=== PATIENT | female | born 1945 | race Caucasian/White ===

== ENCOUNTER → 2017-01-24 15:29 | Outpatient (CLI) | payer MEDICARE ==
[2013-08-09 13:46] VITALS: BMI 17.3
[~2017-01-24 15:29] MED LIST: ATIVAN1 MG PO; FLAGYL500 MG PO; PRILOSEC20 MG PO; TOPROL XL50 MG PO
[2017-01-24 15:48] LABS: CALC OSMOLALITY 262 mosm/kg (275-300); CALCIUM 8.9 mg/dL (8.5-10.1); CARBON DIOXIDE 30.4 mmol/L (21.0-32.0); CHLORIDE - SERUM 96 mmol/L (98-107); CREATININE - SERUM 0.8 mg/dL (0.6-1.3); GLUCOSE 94 mg/dL (74-106); SODIUM 131 mmol/L (136-145); UREA NITROGEN 13 mg/dL (7-18); eGFR NON AFRICAN AMERICAN 75 mL/min (90-120)
== END | disposition home or self-care (01) ==
LOC: D.LABREF 15:29
PROVIDERS: Family Medicine
DX: E87.5 Hyperkalemia (principal)

== ENCOUNTER → 2018-11-11 08:11 | Outpatient (CLI) | payer OTHER ==
[2013-08-09 13:46] VITALS: BMI 17.3
== END | disposition home or self-care (01) ==
LOC: D.US 08:11
DX: R33.9 Retention of urine, unspecified (principal)

== ENCOUNTER → 2018-12-28 08:58 | Outpatient (CLI) | payer OTHER ==
[2013-08-09 13:46] VITALS: BMI 17.3
== END | disposition home or self-care (01) ==
LOC: D.CT 08:58
PROVIDERS: ATTEND Family Medicine
DX: J98.4 Other disorders of lung (principal)

== ENCOUNTER → 2020-02-03 08:31 | Outpatient (CLI) | payer OTHER ==
[2013-08-09 13:46] VITALS: BMI 17.3
== END | disposition home or self-care (01) ==
LOC: D.ECHO 08:31
PROVIDERS: ATTEND Family Medicine
DX: R01.1 Cardiac murmur, unspecified (principal)

== ENCOUNTER 2020-02-22 21:40 | Inpatient (IN) | payer OTHER ==
[~2020-02-22] VITALS: Ht 165.1 cm; Wt 50.1 kg
[2020-02-22] MEDS ORDERED: CIPRO500 MG PO (21:49)
[2020-02-22] MEDS ORDERED: GABAPENTIN300 MG PO (21:49)
[2020-02-22] MEDS ORDERED: FLAGYL500 MG PO (21:49)
[2020-02-22] MEDS ORDERED: COZAAR50 MG PO (21:50)
[2020-02-22] MEDS ORDERED: BUPROPION HCL150 M1 PO (21:51)
[2020-02-22] MEDS ORDERED: LEXAPRO20 MG PO (21:51)
[2020-02-22] MEDS ORDERED: RAMELTEON (21:53)
--- NOTE | 2020-02-22 22:20 | NUR ---
CAROLYN MANDUJANO AT BEDSIDE
--- NOTE | 2020-02-22 22:26 | NUR ---
PATIENT TO RADIOLOGY VIA
[2020-02-22 22:30] LABS: BASOPHILS 0.2 % (0-2); EOSINOPHILS 0.8 % (0-7); HEMATOCRIT 40.7 % (36.0-48.0); HEMOGLOBIN 13.6 g/dL (12-16); IMMATURE GRANULOCYTES 0.4 % (0-5); LYMPHOCYTES 26.7 % (15-50); MCH 30.2 pg (26.0-34.0); MCHC 33.4 g/dL (31.0-37.0); MCV 90.4 fL (80.0-100.0); MEAN PLATELET VOLUME 9.3 fL (7.4-10.4); MONOCYTES 6.5 % (2-11); NEUTROPHILS 65.4 % (40-80); RDW 15.1 % (11.5-14.5); WBC 10.8 10x3/uL (4.8-10.8)
[2020-02-22 22:36] LABS: PLATELET COUNT 331 10x3/uL (130-400)
[2020-02-22 22:38] LABS: BILIRUBIN NEGATIVE (NEGATIVE); GLUCOSE NEGATIVE (NEGATIVE); KETONE NEGATIVE (NEGATIVE); NITRITE NEGATIVE (NEGATIVE); SPECIFIC GRAVITY 1.015 (1.005-1.020); UROBILINOGEN NORMAL (NORMAL)
[2020-02-22 22:39] LABS: BACTERIA MODERATE /hpf (NEGATIVE); RED CELLS - URINE 0-5 /hpf (0-5); YEAST <1+ /hpf (NONE SEEN)
[2020-02-22 23:31] LABS: CALC OSMOLALITY 286 mosm/kg (275-300); CARBON DIOXIDE 23.6 mmol/L (21.0-32.0); CHLORIDE - SERUM 104 mmol/L (98-107); CREATININE - SERUM 1.7 mg/dL (0.6-1.3); GLUCOSE 127 mg/dL (74-106); POTASSIUM - SERUM 3.8 mmol/L (3.5-5.1); SODIUM 137 mmol/L (136-145); UREA NITROGEN 42 mg/dL (7-18); eGFR NON AFRICAN AMERICAN 31 mL/min (90-120)
[2020-02-22 23:45] LABS: ALBUMIN 3.1 g/dL (3.4-5.0); ALKALINE PHOSPHATASE 60 U/L (30-120); ALT (SGPT) 16 U/L (10-68); BILIRUBIN - TOTAL 0.22 mg/dL (0.2-1.3); CREATINE KINASE 79 UL (21-215); LIPASE 62 U/L (73-393); PRO BNP 237 pg/mL (0-125); TROPONIN-I < 0.017 ng/mL (0.000-0.060)
[2020-02-23 04:30] VITALS: BP 130/79; BMI 19.3
[2020-02-23 06:19] LABS: APTT 23.7 SECONDS (22.8-39.4); INR 1.09 (0.85-1.17); PROTIME 14.1 SECONDS (11.6-15.0)
--- NOTE | 2020-02-23 07:30 | NUR ---
REPORT RECEIVED. PT ALERT AND ORIENTED. PT'S ABD IS TENDER. DENIES NAUSEA. PT HAS IV TO LEFT FOREARM WITH NS AT 125ML/HR. PT NPO. NO NEEDS AT THIS TIME.
[2020-02-23 08:45] VITALS: BP 128/73
[2020-02-23 09:26] LABS: BASOPHILS 0.1 % (0-2); EOSINOPHILS 1.7 % (0-7); HEMATOCRIT 37.5 % (36.0-48.0); HEMOGLOBIN 12.1 g/dL (12-16); IMMATURE GRANULOCYTES 0.4 % (0-5); LYMPHOCYTES 34.2 % (15-50); MCH 29.4 pg (26.0-34.0); MCHC 32.3 g/dL (31.0-37.0); MEAN PLATELET VOLUME 8.4 fL (7.4-10.4); MONOCYTES 7.6 % (2-11); RBC 4.12 10x6/uL (4.00-5.40); RDW 15.2 % (11.5-14.5)
[2020-02-23 09:27] LABS: PLATELET COUNT 244 10x3/uL (130-400); WBC 7.3 10x3/uL (4.8-10.8)
--- NOTE | 2020-02-23 09:50 | NUR ---
MORNING MEDS GIVEN. ROCEPHIN INFUSING.
[2020-02-23 10:14] VITALS: BMI 19.3
[2020-02-23 13:28] VITALS: BP 127/69
[2020-02-23 15:10] VITALS: Ht 165.1 cm; Wt 50.1 kg
--- NOTE | 2020-02-23 15:30 | NUR ---
MILK OR MAG GIVEN TO HELP PT TO HAVE BM. WILL MONITOR.
[2020-02-23 17:14] VITALS: BP 132/71
--- NOTE | 2020-02-23 20:30 | NUR ---
SUPINE IN BED, A&O X 4, AMBULATES INDEPENDENTLY. HARD OF HEARING. REPORTS MODERATE ANXIETY, THAT IS ONLY INCREASING. DR BAÑUELOS GAVE PERMISSION FOR MEDS TO BE TAKEN WITH SIPS OF WATER. HOME MED RESTARTED BY NAZIA TIRADO. NO FURTHER NEEDS AT THIS TIME, CTM.
[2020-02-23 21:19] LABS: ANION GAP 11.9 mmol/L (8-16); CALCIUM 7.5 mg/dL (8.5-10.1); POTASSIUM - SERUM 3.9 mmol/L (3.5-5.1)
[2020-02-23 21:21] LABS: CREATININE - SERUM 0.9 mg/dL (0.6-1.3)
[2020-02-23 21:33] VITALS: BP 139/68
[2020-02-24 01:11] VITALS: BP 108/49
--- NOTE | 2020-02-24 02:12 | NUR ---
I have reviewed this patient and I concur with the Shift Assessment completed by the Licensed Practical Nurse today this shift.
[2020-02-24 06:49] VITALS: BP 126/72
[2020-02-24 07:00] LABS: BASOPHILS 0.2 % (0-2); HEMATOCRIT 34.7 % (36.0-48.0); HEMOGLOBIN 11.1 g/dL (12-16); IMMATURE GRANULOCYTES 0.2 % (0-5); LYMPHOCYTES 32.9 % (15-50); MCH 29.4 pg (26.0-34.0); MCV 91.8 fL (80.0-100.0); MEAN PLATELET VOLUME 8.3 fL (7.4-10.4); MONOCYTES 5.5 % (2-11); NEUTROPHILS 60.2 % (40-80); PLATELET COUNT 201 10x3/uL (130-400); RBC 3.78 10x6/uL (4.00-5.40); RDW 15.2 % (11.5-14.5)
[2020-02-24 07:07] LABS: WBC 4.9 10x3/uL (4.8-10.8)
[2020-02-24 07:12] LABS: ALBUMIN 2.6 g/dL (3.4-5.0); ANION GAP 9.4 mmol/L (8-16); BILIRUBIN - TOTAL 0.31 mg/dL (0.2-1.3); CALCIUM 7.8 mg/dL (8.5-10.1); CARBON DIOXIDE 24.6 mmol/L (21.0-32.0); CREATININE - SERUM 0.8 mg/dL (0.6-1.3); MAGNESIUM - SERUM 1.9 mg/dL (1.8-2.4); PROTEIN - SERUM 5.2 g/dL (6.4-8.2)
--- NOTE | 2020-02-24 08:15 | NUR ---
ASSESSMENT PER FLOW SHEET. PATIENT IS WITHOUT DISTRESS.PAIN MEDS ORDERD,SEE MAR. MONITOR FOR NEEDS
[2020-02-24 09:07] VITALS: BP 103/60
[2020-02-24 13:45] VITALS: BP 110/50
--- NOTE | 2020-02-24 16:44 | NUR ---
IN AND OUT CATH,NATIONAL SALES ASSOCIATE. URINE TO LAB ORDERED
[2020-02-24 17:56] VITALS: BP 123/56
[2020-02-24 20:00] VITALS: BP 128/59
[2020-02-25] VITALS: BP 94/52
[2020-02-25 04:00] VITALS: BP 138/84
[2020-02-25 06:40] LABS: BASOPHILS 0.2 % (0-2); EOSINOPHILS 0.5 % (0-7); HEMATOCRIT 35.8 % (36.0-48.0); HEMOGLOBIN 11.2 g/dL (12-16); IMMATURE GRANULOCYTES 0.2 % (0-5); MCHC 31.3 g/dL (31.0-37.0); MCV 92.7 fL (80.0-100.0); MEAN PLATELET VOLUME 8.1 fL (7.4-10.4); MONOCYTES 6.6 % (2-11); NEUTROPHILS 76.5 % (40-80); PLATELET COUNT 226 10x3/uL (130-400); RBC 3.86 10x6/uL (4.00-5.40); RDW 15.1 % (11.5-14.5)
[2020-02-25 06:57] LABS: WBC 6.2 10x3/uL (4.8-10.8)
[2020-02-25 06:58] LABS: ALBUMIN 2.8 g/dL (3.4-5.0); ANION GAP 16.6 mmol/L (8-16); BILIRUBIN - TOTAL 0.28 mg/dL (0.2-1.3); CALCIUM 8.5 mg/dL (8.5-10.1); CARBON DIOXIDE 20.5 mmol/L (21.0-32.0); CREATININE - SERUM 0.9 mg/dL (0.6-1.3); MAGNESIUM - SERUM 1.9 mg/dL (1.8-2.4); POTASSIUM - SERUM 4.1 mmol/L (3.5-5.1); PROTEIN - SERUM 5.5 g/dL (6.4-8.2)
--- NOTE | 2020-02-25 08:13 | NUR ---
RECEIVED CALL FROM PHARMACY PT HAD A CRITICAL GLUCOSE OF 38. RECHECKED FINGER STICK, READING OF 39. CALLED CANDIDA MERRITT. GOT ORDERS FOR A DOSE OF D50. ADMINISTERED. PT IS RESTING IN BED, ALERT AND ORIENTED. WILL REASSES BLOOD SUGAR. DENIES ANY NEEDS AT THIS TIME. BED IN LOWEST POSITION, BED RAILS X2, CALL LIGHT WITHIN REACH. WILL CONTINUE TO MONITOR.
--- NOTE | 2020-02-25 09:01 | NUR ---
REASSESSED BLOOD SUGAR, 147. ACCEPTABLE READING. ADMINISTERED IV PROTONIX AND HELD ALL PO MEDICATIONS DUE TO NPO ORDER. PT IS RESTING COMFORTABLY IN BED. ALERT AND ORIENTED X4. DENIES ANY NEEDS. BED IN LOWEST POSITION, BED RAILS X2, CALL LIGHT WITHIN REACH. WILL CONTINUE TO MONITOR.
--- NOTE | 2020-02-25 09:02 | NUR ---
ASSESSMENT PERFOMRED AT THIS TIME.
--- NOTE | 2020-02-25 11:12 | NUR ---
ADMINSITERED MORPHINE AND ZOFRAN FOR PAIN AND NAUSEA. HUNG IV ANTIBIOTICS. TOLERATED WELL. RESTING IN BED, COMPLAINTS OF BEING IN PAIN. FAMILY AT BEDSIDE. DENIES ANY NEEDS. WILL CONTINUE TO MONITOR.
--- NOTE | 2020-02-25 12:17 | NUR ---
PT HAVING BOWEL MOVEMENT
--- NOTE | 2020-02-25 13:31 | NUR ---
Nutrition follow-up: Pt continues NPO 2/2 nuasea, increased pain Labs reviewed Wt: 116# +BM today Recommend starting ProcalAmine PPN @ 75 cc/hr until diet advanced RDN following.
[2020-02-25 15:13] VITALS: BP 143/66
--- NOTE | 2020-02-25 15:13 | NUR ---
PATIENT IS WITHOUT DISTRESS.CALL LIGHT IN REACH
[2020-02-25 15:27] VITALS: BP 130/61
--- NOTE | 2020-02-25 15:42 | NUR ---
ADMINISTERED ATIVAN PER PT REQUEST. CANDIDA HOWELL STATED THAT PT COULD HAVE ICE CHIPS AND MEDICATION AFTER THE BOWEL SERIES WAS COMPLETED. RESTING COMFORTABLY IN BED. DENIES ANY FURTHER NEEDS. WILL CONTINUE TO MONITOR.
--- NOTE | 2020-02-25 17:00 | NUR ---
PT RESTING COMFORTABLY IN BED. WISHES TO GO HOME TOMORROW. DENIES ANY NEEDS. BED IN LOWEST POSITION, BED RAILS X2, CALL LIGHT WITHIN REACH. WILL CONTINUE TO MONITOR.
[2020-02-25 18:43] VITALS: BP 123/57
[2020-02-25 20:00] VITALS: BP 134/54
[2020-02-26] VITALS: BP 114/67
--- NOTE | 2020-02-26 03:45 | NUR ---
I have reviewed this patient and I concur with the Shift Assessment completed by the Licensed Practical Nurse today this shift.
[2020-02-26 04:00] VITALS: BP 137/71
[2020-02-26 05:33] LABS: BASOPHILS 0.3 % (0-2); EOSINOPHILS 1.8 % (0-7); HEMATOCRIT 32.6 % (36.0-48.0); HEMOGLOBIN 10.5 g/dL (12-16); LYMPHOCYTES 35.1 % (15-50); MCH 29.4 pg (26.0-34.0); MCHC 32.2 g/dL (31.0-37.0); MCV 91.3 fL (80.0-100.0); MEAN PLATELET VOLUME 8.1 fL (7.4-10.4); MONOCYTES 9.2 % (2-11); NEUTROPHILS 53.6 % (40-80); RBC 3.57 10x6/uL (4.00-5.40); RDW 14.7 % (11.5-14.5)
[2020-02-26 05:39] LABS: PLATELET COUNT 173 10x3/uL (130-400); WBC 3.8 10x3/uL (4.8-10.8)
[2020-02-26 06:37] LABS: ALBUMIN 2.6 g/dL (3.4-5.0); ANION GAP 9.7 mmol/L (8-16); BILIRUBIN - TOTAL 0.18 mg/dL (0.2-1.3); CARBON DIOXIDE 24.7 mmol/L (21.0-32.0); CREATININE - SERUM 0.9 mg/dL (0.6-1.3); MAGNESIUM - SERUM 1.6 mg/dL (1.8-2.4); POTASSIUM - SERUM 3.4 mmol/L (3.5-5.1); PROTEIN - SERUM 4.8 g/dL (6.4-8.2)
[2020-02-26 08:41] VITALS: BP 148/67
--- NOTE | 2020-02-26 09:34 | NUR ---
PT LYING IN BED INQUIRED ON WHEN DOCTORS WOULD MAKE ROUNDS BECAUSE SHE IS READY TO GO, PT HAS IV SL IN LEFT FA AND IV IN RT FA WITH FLUIDS RUNNING AT 125. NO S/SX OF DISTRESS, ADMINISTERED SCHEDULED MEDS, NO OTHER NEEDS VOICED, CONTINUE WITH PLAN OF CARE
--- NOTE | 2020-02-26 11:42 | NUR ---
I have reviewed this patient and I concur with the Shift Assessment completed by the Licensed Practical Nurse today this shift.
[2020-02-26 12:16] VITALS: BP 167/67
--- NOTE | 2020-02-26 12:57 | MORECARE ---
CASE MANAGEMENT DISCHARGE SUMMARY PATIENT: HASMUKH DEL ANGEL UNIT: [id number] ADM DATE: 02/22/20 AGE: 74 : 45 SEX: F ROOM/BED: D.2218 AUTHOR: RAUL ANDERSON PHYSICIAN: REFERRING PHYSICIAN: OFELIA OSPINA MD DATE OF SERVICE: 02/26/20 Discharge Plan Patient Name: HASMUKH DEL ANGEL Facility: [facility]:[place] : 1945 Planned Disposition: Home or Self Care Anticipated Discharge Date: Discharge Date: Expected LOS: Initial Reviewer: [email or web address] Initial Review Date: 02/23/2020 Generated: 02/26/20 1:56 pm Comments DCP- Discharge Planning Updated by [email or web address]: Lila Christianson on 02/26/20 11:[address] Patient Name: HASMUKH DEL ANGEL Admission Status: ER Accout number: [id number] Admission Date: 02-22-2020 : 1945 Admission Diagnosis:UNSPECIFIED ABDOMINAL PAIN Attending: JUAQUIN OSPINA Current LOS: 4 Anticipated DC Date: Planned Disposition: Home or Self Care Primary Insurance: [email or web address] Discharge Planning Comments: CM met with patient to complete initial dc planning assessment. CM educated patient on the CM role and verbal consent given by patient to complete assessment. Patient lives at home where she is independent with her care. Her sister will be her service parts driver home. At discharge patient plans to return home and feels this is a safe discharge. CM discussed availability of home health, rehab services, and medical equipment. IMM served and explained. She also stated that her sister will be staying with her for a little bit. Patient denied known discharge needs at this time. CM will continue to follow and will assist as needed with dc plans/needs. Real Estate Subagent: Lila Christianson DCPIA - Discharge Planning Initial Assessment Updated by [email or web address]: Lila Christianson on 02/26/20 12:53 pm * Is the patient Alert and Oriented? Yes * How many steps to enter\exit or inside your home? * PCP RADHAO * Pharmacy [facility] * Preadmission Environment Home Alone * ADLs Independent * Equipment None * List name and contact numbers for known caregivers / representatives who currently or will assist patient after discharge: JOSE ALFREDO MARTINEZ [phone] * Verbal permission to speak to the caregivers and representatives has been obtained from the patient. N/A * Community resources currently utilized None * Additional services required to return to the preadmission environment? No * Can the patient safely return to the preadmission environment? Yes * Has this patient been hospitalized within the prior 30 days at any hospital? No Coverage Notice Reviewer: [email or web address] Kylee Christianson Notice Issued Date-Time: 02/26/2020 12:45 Notice Type: IM Discharge Notice Notice Delivered To: Patient Relationship to Patient: Fox Farmer Name: Delivery Method: HAND - Hand Delivered Kim Days: Prior Verbal Notification: Recipient Understood Notice: Yes Recipient Signature: Yes Med Rec Note Co-signed by Attending: Coverage Notice Comment: imm served and explained Patient Name: HASMUKH DEL ANGEL Page [id number] at 1257 All edits/amendments must be made on the electronic document DICTATION DATE: 02/26/20 1256 BESSEMER CONVERTER OPERATOR: RADHA 02/26/20 1256 RPT#: [id number] DC DATE: STATUS: ADM IN [facility] [address] [place] [address] END OF REPORT
--- NOTE | 2020-02-26 13:54 | NUR ---
PT DC HOME, WENT OVER DC INSTRUCTIONS WELL FOLLOW UP APPOINTMENTS, ALL QUESTIONS ANSWERED. DC IV IN RT AND LEFT FA WITH CATHETER INTACT. TOOK PT TO ER ENTRANCE WHERE RIDE WAS AWAITING.
--- NOTE | 2020-02-27 12:31 | MORECARE ---
CASE MANAGEMENT DISCHARGE SUMMARY PATIENT: HASMUKH DEL ANGEL UNIT: [id number] ADM DATE: 02/22/20 AGE: 74 : 45 SEX: F ROOM/BED: D.2218 AUTHOR: RAUL ANDERSON PHYSICIAN: REFERRING PHYSICIAN: OFELIA OSPINA MD DATE OF SERVICE: 02/27/20 Discharge Plan Patient Name: HASMUKH DEL ANGEL Facility: [facility]:[place] : 1945 Planned Disposition: Home or Self Care Anticipated Discharge Date: Discharge Date: 02/26/2020 Expected LOS: 0 Initial Reviewer: [email or web address] Initial Review Date: 02/23/2020 Generated: 02/27/20 1:30 pm Comments DCP- Discharge Planning Updated by [email or web address]: Lila Christianson on 02/26/20 11:[address] Patient Name: HASMUKH DEL ANGEL Admission Status: ER Accout number: [id number] Admission Date: 02-22-2020 : 1945 Admission Diagnosis:UNSPECIFIED ABDOMINAL PAIN Attending: JUAQUIN OSPINA Current LOS: 4 Anticipated DC Date: Planned Disposition: Home or Self Care Primary Insurance: [employer] Discharge Planning Comments: CM met with patient to complete initial dc planning assessment. CM educated patient on the CM role and verbal consent given by patient to complete assessment. Patient lives at home where she is independent with her care. Her sister will be her dairy truck driver home. At discharge patient plans to return home and feels this is a safe discharge. CM discussed availability of home health, rehab services, and medical equipment. IMM served and explained. She also stated that her sister will be staying with her for a little bit. Patient denied known discharge needs at this time. CM will continue to follow and will assist as needed with dc plans/needs. Pediatric Occupational Therapist: Lila Christianson DCPIA - Discharge Planning Initial Assessment Updated by [email or web address]: Lila Christianson on 02/26/20 12:53 pm * Is the patient Alert and Oriented? Yes * How many steps to enter\exit or inside your home? * PCP RADHAO * Pharmacy [facility] * Preadmission Environment Home Alone * ADLs Independent * Equipment None * List name and contact numbers for known caregivers / representatives who currently or will assist patient after discharge: JOSE ALFREDO MARTINEZ [phone] * Verbal permission to speak to the caregivers and representatives has been obtained from the patient. N/A * Community resources currently utilized None * Additional services required to return to the preadmission environment? No * Can the patient safely return to the preadmission environment? Yes * Has this patient been hospitalized within the prior 30 days at any hospital? No Coverage Notice Reviewer: [email or web address] Kylee Christianson Notice Issued Date-Time: 02/26/2020 12:45 Notice Type: IM Discharge Notice Notice Delivered To: Patient Relationship to Patient: Licensed Chemical Spray Technician Name: Delivery Method: HAND - Hand Delivered Kim Days: Prior Verbal Notification: Recipient Understood Notice: Yes Recipient Signature: Yes Med Rec Note Co-signed by Attending: Coverage Notice Comment: imm served and explained Last DP export: 02/26/20 11:57 a Patient Name: HASMUKH DEL ANGEL Page [id number] at 1231 All edits/amendments must be made on the electronic document DICTATION DATE: 02/27/20 1230 WINDOWS MIGRATION TECHNICIAN: RADHA 02/27/20 1230 RPT#: [id number] DC DATE:02/26/20 STATUS: DIS IN [facility] [address] [place] [address] END OF REPORT
== END 2020-02-26 13:55 | disposition home or self-care (01) | DRG 389 ==
LOC: D.ER 21:40 → D.MS 22:54
PROVIDERS: Family Medicine; ADMIT Emergency Medicine; ATTEND Emergency Medicine
DX: K56.609 Unspecified intestinal obstruction, unspecified as to partial versus complete obstruction (principal); N17.9 Acute kidney failure, unspecified; N39.0 Urinary tract infection, site not specified; I10 Essential (primary) hypertension; K21.9 Gastro-esophageal reflux disease without esophagitis; F41.9 Anxiety disorder, unspecified; G89.29 Other chronic pain; M54.9 Dorsalgia, unspecified; D64.9 Anemia, unspecified